=== PATIENT | male | born 2000 ===

== ENCOUNTER 2020-09-08 22:55 | Outpatient (REF) | payer BC, SELFPAY ==
[2020-09-11 23:57] LABS: SARS-CoV-2 RNA Undetected (Undetected); SARS-CoV-2 Specimen Source Nasal
== END 2020-09-08 23:15 ==
LOC: NCHCN 22:55
PROVIDERS: Visit Provider Nurse Practitioner Family
DX: Z20.828 Contact with and (suspected) exposure to other viral communicable diseases (principal)
CPT/HCPCS: U0003